=== PATIENT | male | born 1990 | race Caucasian/White ===

== ENCOUNTER 2021-10-13 15:32 | Emergency (ER) | payer BC ==
[~2021-10-13] VITALS: Ht 177.8 cm; Wt 83.5 kg
[2021-10-13 16:04] LABS: HEMATOCRIT 42.8 % (42.0-52.0); HEMOGLOBIN 14.8 gm/dL (14.0-18.0); MCH 30.6 pg (26.0-34.0); MCHC 34.6 g/dL (28.0-37.0); MCV 88.6 fL (80.0-100.0); RBC 4.83 mil/uL (4.50-6.00); RDW 13.5 % (10.5-14.5); WBC 6.8 thou/uL (4.0-11.0)
[2021-10-13 16:09] LABS: URINE BILIRUBIN NEGATIVE (Negative); URINE BLOOD NEGATIVE (Negative); URINE CLARITY CLEAR; URINE COLOR YELLOW; URINE GLUCOSE-RANDOM* NEGATIVE (Negative); URINE KETONES NEGATIVE (Negative); URINE LEUKOCYTES-REFLEX NEGATIVE (Negative); URINE NITRITE-REFLEX NEGATIVE (Negative); URINE PROTEIN (DIPSTICK) NEGATIVE (Negative); URINE SPECIFIC GRAVITY <= 1.005 (1.005-1.035); URINE UROBILINOGEN 0.2 E.U./dl (0.2-1.0)
[2021-10-13 16:20] LABS: ANION GAP 6 mmol/L (7-16); BUN 10 mg/dL (7-18); CALCIUM 8.6 mg/dL (8.5-10.1); CHLORIDE 90 mmol/L (98-107); CO2 29 mmol/L (21-32); GLUCOSE 112 mg/dL (74-106); POTASSIUM 3.9 mmol/L (3.5-5.1); SODIUM 125 mmol/L (136-145)
[2021-10-13 16:30] LABS: MAGNESIUM 1.6 mg/dL (1.8-2.4); SGOT 26 U/L (15-37); SGPT 37 U/L (30-65); TOTAL BILIRUBIN 0.5 mg/dL (0.2-1.0); TOTAL PROTEIN 7.8 g/dL (6.4-8.2)
[2021-10-13 18:23] LABS: CALCIUM 8.3 mg/dL (8.5-10.1); POTASSIUM 3.7 mmol/L (3.5-5.1)
[2021-10-13 18:30] VITALS: BP 128/90
--- NOTE | 2021-10-14 07:40 | EKG ---
[address] [address] ELECTROCARDIOGRAM REPORT Name: FOREIGN PATEL Room #: DEP Dhruv#: [id number] Admission: 10/13/21 Attend Phys: Discharge: 10/13/21 Date of : 89 Report #: [id number] [facility] ED Test Date: 2021-10-13 Test Time: 15:42:50 Pat Name: FOREIGN PATEL Department: Room: Gender: Insurance Marketing Specialist: BAUDILIO : 1990 Requested By: Raquel Chen Order Number: [id number] MD: Adelso Toscano Measurements Intervals [place] Rate: 55 P: 62 SC: 167 QRS: 53 QRSD: 93 T: 33 QT: 401 QTc: 384 Interpretive Statements Sinus rhythm No previous ECG available for comparison Electronically Signed On 10-14-2021 7:39:58 [employer] by Adelso Toscano [email or web address] <ELECTRONICALLY SIGNED> By: Adelso Toscano MD, [facility] 10/14/21 0739 [id number] Adelso Toscano MD, FACC /EPI
== END 2021-10-13 18:30 | disposition home or self-care (01) ==
LOC: ER 15:32
PROVIDERS: Nurse Practitioner Family
DX: E87.1 Hypo-osmolality and hyponatremia (principal); Z20.822 Contact with and (suspected) exposure to COVID-19; J06.9 Acute upper respiratory infection, unspecified; E86.0 Dehydration; F41.9 Anxiety disorder, unspecified; F12.90 Cannabis use, unspecified, uncomplicated